=== PATIENT | female | born 1970 | race Caucasian/White ===

== ENCOUNTER → 2018-06-02 17:37 | Outpatient (CLI) | payer OTHER, SELFPAY ==
--- NOTE | 2018-06-02 | DI.MRI.S_ITS ---
PROCEDURE: MR ANKLE LT WO CON INDICATIONS: LEFT ANKLE PAIN TECHNIQUE: Noncontrast sagittal T1 spin echo and T2 fast spin echo with fat saturation, axial proton density fast spin echo and T2 fast spin echo with fat saturation, coronal T1 spin echo and T2 fast spin echo with fat saturation through the ankle/hindfoot. COMPARISON: [facility], RG, ANKLE MIN 3VW (LT), 05/02/2018, 8:59. [facility], MR, ANKLE WITHOUT CONTRAST, 02/28/2017, 17:47. FINDINGS: Image quality: Excellent. Bones and joints: No bone marrow contusions or fractures. 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 There is associated mild magnetic susceptibility artifact. There is mild mid foot degeneration with scattered foci of subchondral edema most prominent within the medial cuneiform. No hindfoot coalitions. No osteochondral lesions in the talar dome. There is a small tibiotalar joint effusion. Medial structures: The posterior tibialis, flexor digitorum longus, and flexor hallucis longus tendons are intact. There is a small amount of tenosynovial fluid along the posterior tibialis tendon. The posterior tibial neurovascular bundle appears normal within the tarsal tunnel, without extrinsic mass effect. The deep layer (anterior and posterior tibiotalar ligaments) and superficial layer (tibionavicular, tibiospring, and tibiocalcaneal ligaments) of the deltoid ligament appear intermediate in signal but grossly intact. The spring ligament components (superomedial calcaneonavicular, medioplantar oblique calcaneonavicular, and inferoplantar longitudinal ligaments) also appear intact. Lateral structures: Postsurgical changes compatible with modified Brostrom procedure are redemonstrated. There is associated intermediate signal intensity soft tissue anteriorly along the expected course of the anterior talofibular ligament compatible with scar tissue. The anterior talofibular, calcaneofibular, and posterior talofibular ligaments appear intermediate in signal but grossly intact. More superiorly, the anterior and posterior tibiofibular ligaments appear intact, as is the intermalleolar ligament. The tibiofibular syndesmosis is normal in width at 2 mm or less. The peroneus longus and brevis tendons demonstrate normal location with mild tendinopathy as well as flattening of the peroneus brevis. No evidence of rupture. There is mild peritendinous edema. Adjacent bony peroneal tubercle and retrotrochlear prominence are normal in size. The sinus tarsi demonstrates preserved fatty signal, without edema, fibrosis, or cyst formation. The calcaneonavicular and calcaneocuboid components of the bifurcate ligament appear intact. The dorsal calcaneocuboid ligament appears intact. Anterior structures: The tibialis anterior, extensor hallucis longus, and extensor digitorum longus tendons appear intact. The dorsal talonavicular ligament appears intact. Posterior and plantar structures: Achilles tendon is intact. There is mild thickening of the central cord of the plantar fascia which may reflect sequelae of prior plantar fasciitis. No abductor digiti quinti muscle atrophy to suggest Rangel neuropathy. IMPRESSION: 1. Postsurgical changes redemonstrated consistent with prior modified Brostrom procedure. Scar tissue redemonstrated along the anterior talofibular ligament which appears grossly intact. Remaining lateral ankle ligaments also demonstrate intermediate signal compatible with prior sprains but appear grossly intact. 2. Mild tendinopathy of the peroneal tendons with mild peritendinous edema. 3. Intermediate signal in the deltoid ligament may reflect sequelae of a prior mild sprain. 4. Mild midfoot degenerative changes. Dictated by: Kelvin tSallworth M.D. on 06/05/2018 at 12:53 Approved by: Kelvin Stallworth M.D. on 06/05/2018 at 13:13
== END ==
PROVIDERS: Visit Provider Orthopaedic Surgery Foot and Ankle Surgery
DX: M25.572 Pain in left ankle and joints of left foot (principal); M19.072 Primary osteoarthritis, left ankle and foot
CPT/HCPCS: 73721

== ENCOUNTER 2018-07-13 11:51 | Day surgery (SDC) | payer OTHER, SELFPAY ==
[2018-07-12 08:56] VITALS: BMI 44.6
[2018-07-13] VITALS (11 sets, daily range): BP systolic 121–155; BP diastolic 61–98; PULSE 78–90; RESP 10–16; TEMP 36.3–36.8; O2SAT 97–100; BMI 44.6
[2018-07-13] MEDS: SCOPOLAMINE 1 PATCH TOP (13:22)
[2018-07-13] MEDS: LACTATED RINGERS 1,000 ML 42 ML IV ×2 (13:29→17:10)
--- NOTE | 2018-07-13 15:13 | PM.PREOP ---
Pre-operative Note Interval Note Pre-op Check: Yes History & Physical Reviewed by Physician and Yes Exam Performed Changes: No
[2018-07-13] MEDS: CLINDAMYCIN 900 MG/50 ML PIGGYBACK 50 MG IV (16:55)
--- NOTE | 2018-07-13 17:12 | SUR.OPER ---
Supine on padded OR bed, head on pillow, arms secured on padded arm boards at <90 degrees abduction, legs uncrossed, left leg draped free with leg hill, safety belt at hips tape over blanket over right lower legs.
[2018-07-13] MEDS: BUPIVACAINE 0.5% (PF) VIAL 30 ML INJ (17:35)
[2018-07-13] MEDS: KETOROLAC 30 MG/ML VIAL IV (18:27)
[2018-07-13] MEDS: HYDROMORPHONE 2 MG INJ 0.5 MG IV ×2 (18:38→18:48)
[2018-07-13] MEDS: METOCLOPRAMIDE 10 MG/2 ML INJ IV (18:55)
--- NOTE | 2018-07-13 18:55 | P.OP_ITS ---
Operative Date/Time/Diagnoses Date of procedure: 07/13/18 Time of procedure: 17:00 Pre-op diagnosis: 1. Left ankle impingement icd M25.879 2. Tear of peroneal tendon, left icd s 86.312d 3. 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 Arthroscopy, ankle, limited debridement, left CPT code 17541 2. Tenosynovectomy of left peroneal tendon CPT code 99095 3. Repair peroneal tendon sheath Same procedure as scheduled: Yes Indications: Patient is a 48-year-old female with chronic left ankle pain after a lateral ligament repair and superficial peroneal retinaculum repair and peroneal tendon repair. The patient has failed conservative treatment with physical therapy, braces, injections. She had a repeat MRI that showed peroneal tendinosis has symptoms consistent with impingement as well as peroneal symptoms. The risks benefits and alternatives to a surgery for ankle debridement and peroneal tendon exploration and debridement were discussed with the patient in detail. The risks discussed include but are not limited to infection, bleeding, damage to nerves and blood vessels, tendons, wound dehiscence, , persistence of pain, DVT, PE, inability return to the desired level of function, generalized dissatisfaction with the surgical procedure, need for additional procedures, cardiopulmonary complications and . The patient expressed understanding of all the risks and elected to proceed. Informed consent was signed in the office. Patient will utilize aspirin 325 mg daily starting postop day 1 for DVT prophylaxis. Surgeon: Deborah Galvez Click Yes if Unassisted: Yes Anesthesia Type: General Operative Notes Findings: Arthroscopy findings. The tibiotalar joint and cartilage was without defect there was minimal anterior synovitis that was gently debrided with the shaver. Peroneal tendon debridement findings: There is significant scar tissue over the peroneal tendon sheath and within the sheath along the peroneal tendons. The peroneus brevis tendon was noted to have a longitudinal tear involving approximately 10% of the tendon and this was resected. Additionally there was a significant low-lying muscle belly that was debrided. Both peroneal tendons had significant tenosynovitis which was carefully debrided. Tear peroneal sheath distal to SPR. Closure Type: primary Specimen(s): none sent Implants & Drains: None Applied: other (Splint) Estimated Blood Loss (mL): 10 Blood products transfused: none Tourniquet time (min): 53 Procedure in detail: The preoperative holding area the appropriate limb and site of surgery were marked and confirmed with the patient. The patient was brought to the operating room placed on operating table and given anesthetic. Following successful level of anesthesia the patient was appropriately padded position secured to the table. An SCD was placed on the contralateral leg. The patient was placed supine with a well-padded thigh tourniquet and positioned for arthroscopy with the leg hill. Surgical leg was then prepped and draped in the standard sterile fashion. A formal time-out was completed confirming the patient's side and site of surgery administration of appropriate preoperative antibiotics. All were in agreement. Esmarch bandage was utilized to exsanguinate the limb and the tourniquet was raised on the thigh to 250 mm of mercury and stayed there for 53 min. The appropriate anterior medial portal site for the ankle was identified just medial to the tibialis anterior tendon a needle was introduced into the tibiotalar joint and 15 cc of lactated Ringer's was used to insufflate the joint. Next a knife was used just through the skin and a hemostat was used for blunt dissection deeply and entered the anterior joint the trocar and scope were then introduced. Under direct visualization the anterior lateral portal was established using a needle and then again the superficial neck and blunt has spread into the joint technique. The noninvasive distractor was placed and arthroscopy was undertaken. Tibiotalar joint was evaluated including the medial and lateral gutters. The talar and tibial cartilage were intact without focal defects found. There was a minimal amount of anterior lateral synovitis may be consistent with some of the patient's impingement symptoms this was gently debrided using the small joint shaver. Once we were satisfied with this the arthroscopy instruments were removed from the ankle the patient's leg was removed from the well leg hill and the open procedure was started. Medial tendon exploration: Patient's previous posterior lateral incision along the posterior fibula and peroneal tendons was reopened this was taken through the skin and subcutaneous tissue. Careful dissection was taken down to expose the peroneal sheath proximally and distally. There was a noted rent in the peroneal sheath distally just past the SPR. a [employer] was placed into this opening and the peroneal sheath was opened longitudinally over the [employer] leaving a cuff for repair off the back of the fibula. Next the peroneal tendons were inspected. The peroneus longus appeared predominantly intact but with some tenosynovitis and scarring. The peroneus brevis did have a longitudinal tear involving approximately 10% of the tendon as well as significant scarring adhesions and a low-lying muscle belly that was adherent to the surrounding tissue. This was freed up in the low lying muscle belly was excised and the tendon tear was also excised. This left smooth well formed peroneal tendons which glided well within the groove. Wound was then irrigated the peroneal retinaculum was closed with 2 0 Maxon suture and the wound was closed in layers with 3 0 Vicryl for a Monocryl and 3 O nylon suture. The portal incisions were closed with 3 O nylon and Steri-Strips. Tourniquet was released prior to closure and hemostasis was confirmed. A sterile dressing was placed with Xeroform gauze Webril and a stirrup splint. The patient was woken from anesthesia taken the PACU in good condition. There no known complications to this procedure. All counts were correct. It was noted taking up the drapes postoperatively the patient did have some minor superficial bruising at the posterior thigh despite use of appropriate padding around the thigh tourniquet and the gel pad on the leg hill. There is no skin breakdown blistering or occasions for further intervention. Complications: none Condition: stable Disposition: PACU Plan for aftercare: Patient will be nonweightbearing on the operative extremity she will elevate above the heart level strictly for the 1st 2 weeks after surgery. She will have Percocet for pain control and use aspirin 325 daily for DVT prophylaxis.
[2018-07-13] MEDS: OXYCODONE/ACETAMINOPHEN 5/325 TABLET 1 TAB PO (19:03)
--- NOTE | 2018-07-13 19:08 | SUR.PHASEI ---
PACU stay length primarily due to pain control measures and follow up with VS. FLACC and verbalized ratings are inconsistent, but medication given based on verbalized.
[2018-07-13] MEDS: LORazepam 0.5 MG TABLET PO (19:20)
--- NOTE | 2018-07-13 19:29 | SUR.PHASEII ---
IV removed at 192. It was documented but a 22g angio was in situ in the rt forearm with fluids running easily.
--- NOTE | 2018-07-13 19:43 | SUR.PHASEII ---
Some nausea after trying chocolate pudding in OPD. Went with Lorazepam po for treatment due to not wanting a reaction to quicker onset of IV (also an option). With bland affect perhaps some emotional benefit might be realized as well.
== END 2018-07-13 19:45 | disposition home or self-care (01) ==
PROVIDERS: PCP Family Medicine; Visit Provider Orthopaedic Surgery Foot and Ankle Surgery
PROC: (CPT 29897; principal; 2018-07-13 13:45)
DX: M25.872 Other specified joint disorders, left ankle and foot (principal); S86.312A Strain of muscle(s) and tendon(s) of peroneal muscle group at lower leg level, left leg, initial encounter; M76.72 Peroneal tendinitis, left leg; E66.9 Obesity, unspecified; M25.372 Other instability, left ankle; Z68.41 Body mass index [BMI] 40.0-44.9, adult
CPT/HCPCS: 29897; 28086; J1100; J1170; J1885; J2704; J2765; J3010

== ENCOUNTER 2019-04-13 07:47 | Day surgery (SDC) | payer OTHER, SELFPAY ==
[2019-04-12 14:08] VITALS: BMI 43.7
[2019-04-13] VITALS (8 sets, daily range): BP systolic 119–140; BP diastolic 75–87; PULSE 70–100; RESP 12–16; TEMP 36.1–36.5; O2SAT 94–100; BMI 43.3
--- NOTE | 2019-04-13 | PATH_ITS ---
[facility] Accession Number: [id number] . 01 Material submitted: . foot - MASS DORSUM LEFT FOOT . 01 Diagnosis: Soft Tissue, Dorsum of Left Foot, Excision: Fibroadipose tissue with changes of ganglion cyst. [facility] 04/17/2019 1706 Local . 01 Electronically signed: . Hilary Sigala MD, Pathologist NPI- [id number] . 01 Gross description: . MASS DORSUM LEFT FOOT: Received in formalin is 1 fragment of block soft tissue measuring 0.9 x 0.8 x 1.0 cm. Tissue is inked,. Specimen is sectioned and submitted in its entirety in 1 cassette. /[facility] [place] 04/13/2019 194 Local . 01 Pathologist provided ICD-10: R22.42 . 01 CPT . 765252 Performed at: [address] [facility] [id number] MD Kelvin Mena MD Phone: [phone]
--- NOTE | 2019-04-13 07:26 | P.HP_ITS ---
History of Present Illness History of Present Illness Date Patient Seen: 04/13/19 Time Patient Seen: 07:27 Chief complaint: [id number] *$61 copay* Narrative: Interval update to the patient's H and P as it has been just over 30 days from her preoperative assessment there been no notable changes. Patient is a 48-year-old female that presents with a left dorsal foot mass that has been bothersome and increasing over time. She endorses pain and burning in the area and she is unable to wear shoes comfortably. She is interested in removal of the cyst. She previously had an ultrasound demonstrating consistent findings with dorsal foot ganglion. Denies fevers chills nausea vomiting Patient History Medical History Arthritis (Acute) DDD (degenerative disc disease), lumbar (Acute) Diabetes (Acute) GERD (gastroesophageal reflux disease) (Acute) H/O: hysterectomy (Acute) Hx of migraine headaches (Acute) Peroneal tenosynovitis (Acute 06/02/16) Peroneus brevis tendinitis (Acute) Surgical History History of 3 sections (Acute) History of carpal tunnel release (Acute) History of ethmoidectomy (Acute 08/15/14) History of surgery (Acute) Hx laparoscopic cholecystectomy (Acute) Hx of adenoidectomy (Acute) Hx of arthroscopic knee surgery (Acute) Hx of nasal septoplasty (Acute 08/15/14) Social History household members: spouse Smoking Status: Never smoker alcohol intake: current Family & Social History Social History: household members spouse Tobacco & Substance use: Smoking Status Never smoker alcohol intake current Substance Use Type does not use Meds Home Medications and Allergies Home Medications Medication Instructions Recorded Confirmed Type esomeprazole magnesium [Nexium] 20 mg PO DAILY 04/13/19 04/13/19 History trazodone 50 mg PO BEDTIME 04/13/19 04/13/19 History Allergies Allergy/AdvReac Type Severity Reaction Status Date / Time ondansetron Allergy Intermediate HIVES Verified 04/13/19 08:11 [From ZOFRAN ( HYDROCHLORIDE)] Penicillins [PENICILLINS] Allergy Intermediate HIVES Verified 04/13/19 08:11 wheat [WHEAT] Allergy Unknown Gastrointestinal Verified 04/13/19 08:11 Upset hydrocodone AdvReac Insomnia Verified 04/13/19 08:11 Review of Systems Review of Systems ROS Unobtainable: All systems reviewed & are unremarkable except as noted in HPI and below Exam Narrative Exam Narrative: Alert oriented female in no acute distress. Cardiovascular exam regular rate and rhythm. Respiratory exam lungs clear to auscultation bilaterally. Abdomen soft and nontender. No lymphadenopathy the noted. No skin lesions. Gait is full weight-bearing without assistive devices. Right lower extremity shows grossly normal alignment range of motion strength and stability swelling atrophy or effusion. Left lower extremity shows grossly normal alignment range of motion strength and stability. There is a small approximately 1 cm mobile mass over the dorsum of the foot near the tarsometatarsal joints at the 3rd and 4th to toes. Mass is compressible. No skin changes. No signs or symptoms of infection. Brisk capillary refill. Neurologic examination grossly intact to light touch throughout the upper and lower extremities. Coordination normal. Objective Imaging Ultrasound lower extremity: Radiologist's impression: Ganglion cyst 1.3 x 0.4 x 0.4 cm along the extensor digitorum longus tendons between the 3rd and 4th toes at the tarsometatarsal level left foot corresponding to palpable visible finding. Reading radiologist brody Alvarado----[facility] Assessment & Plan Assessment & Plan narrative: 48-year-old female with a dorsal mass on her left foot is likely a ganglion cyst to be the tendon sheath or tarsometatarsal joints. Patient does have mild degenerative changes on x-ray. We discussed treatment of this with conservative treatment and avoiding irritating shoes we also discussed aspiration or injection surgical removal and excisional biopsy. The patient understands the options. She is interested in excisional biopsy. The risks benefits and alternatives of procedure were discussed with the patient in detail including infection, recurrence of mass, need for additional procedures, nerve and vessel damage, wound healing problems, scarring, persistent pain, DVT, PE, cardiac and pulmonary complications up to including . Consent was signed in the office. This will be an outpatient surgery. The patient will be weightbear as tolerating and a soft dressing afterwards. She will bring a shoe heart from home. She will have Ancef 2 g for preoperative antibiotic. Time Spent With Patient Time with patient: less than 15 minutes Quality VTE Deep Vein Thrombosis/Pulmonary Embolism Present on Admission: No
[2019-04-13] MEDS: LACTATED RINGERS 1,000 ML 42 ML IV (08:16)
[2019-04-13] MEDS: SCOPOLAMINE 1 PATCH TOP (09:50)
[2019-04-13] MEDS: CEFAZOLIN 2 GM/100 ML FROZ.PIGGY IV (09:50)
--- NOTE | 2019-04-13 10:05 | SUR.OPER ---
Supine on padded OR bed, head on pillow, arms secured on padded arm boards at <90 degrees abduction, legs uncrossed, safety belt at thigh, tape over blanket over lower legs.
[2019-04-13] MEDS: BUPIVACAINE 0.25% (PF) VIAL 30 ML INJ (10:12)
--- NOTE | 2019-04-13 10:35 | PM.OP.1 ---
Operative Date/Time/Diagnoses Date of procedure: 04/13/19 Time of procedure: 10:00 Pre-op diagnosis: Mass left foot R22.42 Post-op diagnosis: same Procedure & Clinicians Procedure: Excision mass left foot dorsum CPT code 71260 Same procedure as scheduled: Yes Indications: Patient is a 48-year-old female with a dorsal mass on her left foot consistent with ganglion cyst on ultrasound. The patient had increasing size and pain associated with the mass and difficulty wearing shoes. We discussed treatment options. The patient elected for surgical excision. The risks and benefits of the procedure have been discussed with the patient even opportunity to ask questions. The risks of surgery include but are not limited to infection, recurrence, malunion, nonunion, persistence of pain, damage to nerves and blood vessels, posttraumatic arthritis, DVT, PE, cardiopulmonary complications and . The patient expressed a thorough understanding of the risks and benefits of surgery and has elected to proceed. Consent was signed in the office. Surgeon: Deborah Galvez Click Yes if Unassisted: Yes Anesthesia Type: MAC +/- and Local Operative Notes Findings: Small dorsal ganglion type cyst emerging from the tarsometatarsal joints between the extensor tendons between the 3rd and 4th toes of the left foot. Closure Type: primary Specimen(s): other (Dorsal mass, cyst for pathology) Estimated Blood Loss (mL): 1 Blood products transfused: none Tourniquet time (min): 13 Procedure in detail: Patient was seen in the preoperative area site of surgery was marked and informed consent confirmed. Final questions were answered. Patient was then brought back to the operating room positioned supine on the operative table. Anesthesia was administered. All bony prominences were well padded. A well-padded calf tourniquet was placed. SCD was placed on the contralateral lower extremity. A formal time-out procedure was performed confirming the patient's side and site of surgery. Preoperative antibiotics were administered. The left lower extremities prepped and draped in the standard sterile fashion. Attention was turned to the dorsum of the left foot. There is a palpable mass at the base of the 3rd and 4th tarsometatarsal joints on the extensor surface. This was marked out an approximately 2 cm longitudinal incision was made this was taken carefully down through the skin then subcutaneous dissection to the extensor tendons. There is noted to be a soft tissue cyst type mass extending up through the extensor tendons. This was carefully dissected and followed deep down between the extensor tendons to the level of the tarsometatarsal joints. There is a small amount of clear gelatinous cyst type fluid. This tissue was excised and sent in total to pathology. The wound was then explored no further masses were encountered. There were small osteophytes at the tarsometatarsal joints. And extension tendons were left intact. The wound was then irrigated the tourniquet released and the wound closed in layered fashion with 4 0 Monocryl and 3 O nylon in the skin. A sterile dressing was placed with Xeroform gauze Kerlix and Jesus wrap. Patient was then woken from anesthesia and taken to recovery room in good condition. All counts were correct. No immediate complications. Complications: none Post-operative Condition: stable Disposition: PACU Plan for aftercare: Weight bear as tolerated left lower extremity postop shoe as needed. Keep dressing in place until follow-up. Keep incision clean dry and intact.
[2019-04-13] MEDS: OXYCODONE IR 5 MG TABLET PO (11:11)
--- NOTE | 2019-04-13 11:13 | SUR.PHASEII ---
PT TOLERATING PO JUICE AND PUDDING, AT BEDSIDE WITH PT, D/C INSTRUCTIONS REVIEWED WITH PT AND WITH VERBALIZED UNDERSTANDING.
== END 2019-04-13 11:30 | disposition home or self-care (01) ==
PROVIDERS: PCP Family Medicine; Visit Provider Orthopaedic Surgery Foot and Ankle Surgery
PROC: (CPT 64782; principal; 2019-04-13 09:45)
DX: M67.472 Ganglion, left ankle and foot (principal); M25.775 Osteophyte, left foot; E11.9 Type 2 diabetes mellitus without complications
CPT/HCPCS: 28090; J0690; J2704; J2765; J3010

== ENCOUNTER → 2020-02-12 09:17 | Outpatient (CLI) | payer OTHER, SELFPAY ==
[2020-02-13 06:29] LABS: COVID19 Sendout Not Detected (Not Detect)
== END ==
PROVIDERS: PCP Family Medicine; Visit Provider Physician Assistant
DX: Z11.59 Encounter for screening for other viral diseases (principal)
CPT/HCPCS: 87635

== ENCOUNTER → 2021-06-23 07:58 | Outpatient (CLI) | payer OTHER, SELFPAY ==
--- NOTE | 2021-06-23 | DI.MG.S_ITS ---
BILATERAL DIGITAL SCREENING MAMMOGRAM 3D/2D WITH CAD: 06/23/2021 CLINICAL: Routine screening. Comparison is made to exams dated: 05/10/2018 mammogram and 08/19/2015 mammogram - [facility]. There are scattered fibroglandular elements in both breasts. Current study was also evaluated with a Computer Aided Detection (CAD) system. No significant masses, calcifications, or other findings are seen in either breast. There has been no significant interval change. IMPRESSION: NEGATIVE There is no mammographic evidence of malignancy. A 1 year screening mammogram is recommended. This exam was interpreted at Station ID: [id number]. NOTE: For mammograms, a report in lay terms will be sent to the patient. Approximately 15% of breast malignancies will not be visualized mammographically. In the management of a palpable breast mass, a negative mammogram must not discourage biopsy of a clinically suspicious lesion. Electronically Signed By: Juan Diego melara/renee:06/23/2021 11:37:59 letter sent: Normal Exam ACR BI-RADS Category 1: Negative [id number]
== END ==
PROVIDERS: PCP Family Medicine; Referring Provider Family Medicine; Visit Provider Family Medicine
DX: Z12.31 Encounter for screening mammogram for malignant neoplasm of breast (principal)
CPT/HCPCS: 77063; 77067

== ENCOUNTER 2023-02-04 13:17 | Emergency (ER) | payer OTHER, SELFPAY ==
[2023-02-04] VITALS (14 sets, daily range): BP systolic 106–129; BP diastolic 56–68; PULSE 58–77; RESP 14; TEMP 36.8; O2SAT 94–100; BMI 29.9
[2023-02-04 13:52] LABS: Add Manual Diff / Slide Review NO; Basophils Absolute Auto 0 /uL (0-100); Basophils Percent Auto 0.7 % (0-2); Eosinophils Absolute Auto 100 /uL (0-450); Eosinophils Percent Auto 1.1 % (2-4); Hemoglobin 13.6 g/dL (12.0-16.0); Lymphocytes Absolute Auto 1800 /uL (1100-4500); Mean Corpuscular HGB Conc 34.9 % (30-36); Mean Corpuscular Hemoglobin 30.2 PG (26-34); Mean Corpuscular Volume 86.6 fL (80-100); Monocytes Absolute Auto 300 /uL (0-900); Monocytes Percent Auto 6.6 % (3-14); Neutrophils Absolute Auto 2800 /uL (1500-7000); Neutrophils Percent Auto 55.6 % (50-75); Platelet Count 201 X10^3/uL (150-400); Red Blood Cell Count 4.51 X10^6/uL (4.0-5.2); Red Cell Distribution Width 13.6 % (11.6-14.8); White Blood Cell Count 5.1 X10^3/uL (4.5-11.0)
[2023-02-04 14:04] LABS: Alanine Aminotransferase 39 IU/L (<35); Albumin 4.5 g/dL (3.5-5.0); Albumin Globulin Ratio 1.6 (1.0-2.8); Alkaline Phosphatase 96 U/L (38-126); Aspartate Aminotransferase 41 IU/L (14-36); BUN Creatinine Ratio 29.4 (6-22); Bilirubin Total 0.6 mg/dL (0.2-1.3); Blood Urea Nitrogen 15 mg/dL (7-17); Calcium 8.9 mg/dL (8.4-10.2); Carbon Dioxide 29 mmol/L (22-32); Chloride 102 mmol/L (98-107); Estimated Glomerular Filt Rate > 60 mL/min (>60); Globulin 2.9 g/dL (1.7-4.1); Glucose 99 mg/dL (70-100); Lipase 82 U/L (23-300); Potassium 4.7 mmol/L (3.4-5.1); Sodium 137 mmol/L (137-145); Total Protein 7.4 g/dL (6.3-8.2)
[2023-02-04 14:18] LABS: HEMOLYSIS 66 (0-50)
--- NOTE | 2023-02-04 18:08 | ED_ITS ---
HPI - General Adult General Chief complaint: Urogenital-Female Stated complaint: HX of UTI pain is back Time Seen by Provider: 02/04/23 18:03 Source: patient Mode of arrival: Ambulatory History of Present Illness HPI narrative: 52-year-old woman with a history of bariatric surgery 10 months ago, she is post cholecystectomy but does still have her appendix and she was seen at urgent care 2 weeks ago with complaints of right lower quadrant pain she gave a urine sample that did not suggest abnormality but did culture positive for bladder infection without any dysuria. She was given a course of antibiotics and it did not seem to completely influence her pain. She finished those antibiotics on the and is continuing to have significant right lower quadrant pain. She denies any fevers, cough or chills. She is been mildly nauseated with decreased appetite. She has a history of chronic constipation and typically uses a suppository to help does not feel that this is significantly changed. There has been no blood in her stools. She has no prior history of kidney infections or kidney stones. Related Data Home Medications Medication Instructions Recorded Confirmed esomeprazole magnesium 20 mg 20 mg PO DAILY 04/13/19 04/13/19 capsule,delayed release (Nexium) trazodone 50 mg tablet 50 mg PO BEDTIME 04/13/19 04/13/19 Previous Rx's Medication Instructions Recorded oxycodone 5 mg tablet 5 mg PO Q4H PRN pain #14 tabs 04/13/19 Allergies Allergy/AdvReac Type Severity Reaction Status Date / Time ondansetron Allergy Intermediate HIVES Verified 02/04/23 13:25 [From ZOFRAN ( HYDROCHLORIDE)] Penicillins [PENICILLINS] Allergy Intermediate HIVES Verified 02/04/23 13:25 sulfamethoxazole Allergy Intermediate Rash Verified 02/04/23 13:27 [From Sulfamethoxazole-Trimethoprim] trimethoprim Allergy Intermediate Rash Verified 02/04/23 13:27 [From Sulfamethoxazole-Trimethoprim] wheat [WHEAT] Allergy Unknown Gastrointestinal Verified 02/04/23 13:25 Upset hydrocodone AdvReac Insomnia Verified 02/04/23 13:25 Review of Systems Review of Systems Narrative: Pertinent positive and negative findings as per HPI Patient History Medical History (Updated 02/04/23 @ 21:08 by Tory Steen MD) Arthritis DDD (degenerative disc disease), lumbar Diabetes GERD (gastroesophageal reflux disease) Hx of migraine headaches Peroneal tenosynovitis (06/02/16) Peroneus brevis tendinitis Surgical History H/O: hysterectomy History of 3 sections History of carpal tunnel release History of ethmoidectomy (08/15/14) History of surgery Hx laparoscopic cholecystectomy Hx of adenoidectomy Hx of arthroscopic knee surgery Hx of nasal septoplasty (08/15/14) Social History household members: spouse Smoking Status: Never smoker alcohol intake: current Smoking Status: Never smoker Substance Use Type: marijuana Exam Initial Vital Signs Initial Vital Signs: Vital Signs Temperature 98.2 F 02/04/23 13:20 Pulse Rate 72 02/04/23 13:20 Respiratory Rate 14 02/04/23 13:20 Blood Pressure 122/60 02/04/23 13:20 Pulse Oximetry 99 02/04/23 13:20 Oxygen Delivery Method Room Air 02/04/23 13:20 General: Healthy appearing, in no acute distress. Able to give a complete and coherent history. Well-nourished well-developed HEENT: Moist mucous membranes, normal sclera with reactive pupils, Neck: No cervical adenopathy supple Respiratory: Lungs are clear to auscultation, no wheezing no rales no rhonchi. Full and symmetrical air movement Cardiac: Regular rate and rhythm no murmurs no bruits Abdomen: Soft, tender in the entire right lower quadrant including the right flank with most tenderness deep in the right quadrant. She has no rebound or guarding Skin: Warm and dry, no rashes Neurologic: Grossly neurologically intact with no obvious asymmetries or abnormalities Extremities: No trauma, well perfused Psych: Cooperative, appropriate insight and affect Course Orders Ordered: ED Orders 02/04/23 13:40 Complete Blood Count AUTO DIFF Stat Comprehensive Metabolic Panel Stat Lipase Stat 02/04/23 18:22 CT abdomen pelvis w con Stat Hydromorphone HCl (Hydromorphone 0.5 Mg Inj) 0.5 mg IV Q15MIN PRN PRN Reason: Pain, Last Admin: 02/04/23 18:31 Dose: 0.5 mg Documented By: ST Discontinued Medications Sodium Chloride (Normal Saline 0.9%) 1,000 mls @ 1,000 mls/hr IV BOLUS ONE Stop: 02/04/23 19:21 Ketorolac Tromethamine (Ketorolac 30 Mg/Ml Vial) 15 mg IV NOW ONE Stop: 02/04/23 18:23 Last Admin: 02/04/23 18:30 Dose: 15 mg Documented By: ST Vital Signs Vital signs: Vital Signs - 8 hr 02/04/23 13:20 02/04/23 17:01 02/04/23 17:05 Temperature 98.2 F Pulse Rate 72 77 76 Respiratory Rate 14 Blood Pressure 122/60 Pulse Oximetry 99 100 98 Oxygen Delivery Method Room Air 02/04/23 17:05 02/04/23 17:30 02/04/23 17:30 Temperature Pulse Rate 61 Respiratory Rate Blood Pressure 106/68 111/59 L Pulse Oximetry 94 Oxygen Delivery Method 02/04/23 18:00 02/04/23 18:01 02/04/23 18:01 Temperature Pulse Rate 63 58 L Respiratory Rate Blood Pressure 129/58 L Pulse Oximetry 97 97 Oxygen Delivery Method 02/04/23 18:33 02/04/23 18:34 02/04/23 18:34 Temperature Pulse Rate 71 61 Respiratory Rate Blood Pressure 110/59 L Pulse Oximetry 99 100 Oxygen Delivery Method 02/04/23 19:00 02/04/23 19:30 02/04/23 20:00 Temperature Pulse Rate 60 60 60 Respiratory Rate Blood Pressure Pulse Oximetry 98 99 99 Oxygen Delivery Method 02/04/23 20:04 02/04/23 20:04 02/04/23 20:30 Temperature Pulse Rate 62 Respiratory Rate Blood Pressure 113/57 L 122/60 Pulse Oximetry 100 Oxygen Delivery Method 02/04/23 20:30 Temperature Pulse Rate 68 Respiratory Rate Blood Pressure Pulse Oximetry 99 Oxygen Delivery Method Medical Decision Making Lab Data 02/04/23 13:40 02/04/23 13:40 Labs: Lab Results 02/04/23 02/04/23 Range/Units 13:40 13:40 WBC 5.1 (4.5-11.0) X10^3/uL RBC 4.51 (4.0-5.2) X10^6/uL Hgb 13.6 (12.0-16.0) g/dL Hct 39.0 (36-46) % MCV 86.6 (80-100) fL MCH 30.2 (26-34) PG MCHC 34.9 (30-36) % RDW 13.6 (11.6-14.8) % Plt Count 201 (150-400) X10^3/uL Neut % (Auto) 55.6 (50-75) % Lymph % (Auto) 36.0 (25-40) % [place] % (Auto) 6.6 (3-14) % Eos % (Auto) 1.1 L (2-4) % Baso % (Auto) 0.7 (0-2) % Neut # (Auto) 2800 (1835-7491) /uL Lymph # (Auto) 1800 (1602-6685) /uL [place] # (Auto) 300 (0-900) /uL Eos # (Auto) 100 (0-450) /uL Baso # (Auto) 0 (0-100) /uL Sodium 137 (137-145) mmol/L Potassium 4.7 (3.4-5.1) mmol/L Chloride 102 (98-107) mmol/L Carbon Dioxide 29 (22-32) mmol/L BUN 15 (7-17) mg/dL Creatinine 0.51 L (0.52-1.04) mg/dL Estimated GFR > 60 (>60) mL/min BUN/Creatinine Ratio 29.4 H (6-22) Glucose 99 (70-100) mg/dL Calcium 8.9 (8.4-10.2) mg/dL Total Bilirubin 0.6 (0.2-1.3) mg/dL AST 41 H (14-36) IU/L ALT 39 H (<35) IU/L Alkaline Phosphatase 96 (38-126) U/L Total Protein 7.4 (6.3-8.2) g/dL Albumin 4.5 (3.5-5.0) g/dL Globulin 2.9 (1.7-4.1) g/dL Albumin/Globulin Ratio 1.6 (1.0-2.8) Lipase 82 (23-300) U/L Urine Dip Bedside Urine Glucose Negative Bedside Urine Bilirubin - Negative Bedside Urine Ketone - Negative Urine Specific [place] 1.010 Bedside Urine Occult Blood - Negative Bedside Urine pH 7.0 Bedside Urine Protein - Negative Bedside Urine Urobilinogen - Negative Bedside Urine Nitrite - Negative Bedside Urine Leukocytes - Negative Esterase Point of care testing: Urine Dip Bedside Urine Glucose Negative Bedside Urine Bilirubin - Negative Bedside Urine Ketone - Negative Urine Specific [place] 1.010 Bedside Urine Occult Blood - Negative Bedside Urine pH 7.0 Bedside Urine Protein - Negative Bedside Urine Urobilinogen - Negative Bedside Urine Nitrite - Negative Bedside Urine Leukocytes - Negative Esterase MDM Narrative Medical decision making narrative: CC: 2 weeks of continued right lower quadrant pain, acute, uncertain prognosis Complicating co-morbidities: Gastric surgery 8 months ago Data collected from: patient, Medical records reviewed: Orthopedic notes reviewed Differential considered: Kidney stone, obstructing kidney abnormality, pyelonephritis, appendicitis, Exam documented above, pertinent findings include: Tenderness in the right lower quadrant without rebound or guarding Lab Test results independently reviewed as above. Pertinent findings: CBC is unremarkable with normal white blood cell count Chemistries are reassuring including a normal creatinine. Minimally elevated AST and ALT at 41 and 39 slightly increased from comparison 2017 Imaging studies independently reviewed: CT scan of the abdomen does not show any surgical emergencies, the appendix is noted prominent in size yet no surrounding inflammatory changes and early appendicitis is within the differential. She also has quite a bit of stool in the same area. Discussion: 52-year-old woman presents with right lower quadrant pain. She has had difficulties with constipation since bariatric surgery almost 8 months ago. We talked about preventive measures such as daily magnesium supplements, MiraLax daily may also be helpful in preventing future constipation. In the meantime there is no evidence of surgical bowel obstruction, appendicitis, kidney failure, electrolyte abnormalities or alternate explanations that would require hospitalization, additional imaging or lab work at this time. She is discharged home with a bottle of magnesium citrate to see if cleaning the stool out of the right side of her colon resolves her pain. She understands that she is welcome to return should symptoms not improve or should she develop other findings. Discharge Plan Departure Patient Disposition: Home Clinical Impression: Abdominal pain Qualifiers: Abdominal location: right lower quadrant Qualified Code(s): R10.31 - Right low er quadrant pain Constipation Qualifiers: Constipation type: unspecified constipation type Qualified Code(s): K59.00 - Constipation, unspecified Instructions: DI for Abdominal Pain-Adult, DI for Constipation Activity Restrictions/Additional Instructions: Thank you for coming in tonight I am sorry that you are suffering with this abdominal pain. Fortunately, I am not finding any evidence of acute appendicitis or other surgical abnormalities. I am finding quite a bit of stool that is very compacted over into the right side of your colon and I suspect that is causing your pain. I have given you a bottle of magnesium citrate, I would encourage you to drink the whole thing when you get home. Expect results by tomorrow at the latest. To prevent problems in the future, using anywhere between 1-4 magnesium tablets as a simple supplement can be helpful. You may also find that a scoop full of MiraLax and a cup of coffee with a bit of Creamer in the morning is undetectable and also quite helpful. If you find that you are getting worse or develop any new symptoms, please feel free to return to the emergency department for further evaluation. Prescriptions: No Action trazodone 50 mg Tablet 50 mg PO BEDTIME esomeprazole magnesium [Nexium] 20 mg Capsule,Delayed Release(Dr/Ec) 20 mg PO DAILY oxycodone 5 mg tablet 5 mg PO Q4H PRN (Reason: pain) Qty: 14 0RF Referrals: ProviderJamari [Primary Care Provider] - Stand Alone Forms: Patient Portal/API
--- NOTE | 2023-02-04 18:22 | DI.CT.S_ITS ---
PROCEDURE: CT ABDOMEN PELVIS W CON INDICATIONS: RLQ pain for 2 weeks TECHNIQUE: After the administration of oral and IV contrast, axial sections were acquired from the lung bases to the pubic symphysis. Coronal and sagittal reformats were performed. For radiation dose reduction, the following was used: automated exposure control, adjustment of mA and/or kV according to patient size. COMPARISON: [facility], CT, ABDOMEN/PELVIS WITH CONTRAST, 09/03/2016, 12:10. FINDINGS: Image quality: Excellent. Lung bases: Unremarkable. Heart: No significant findings. ABDOMEN: Liver: Unremarkable. Gallbladder: Removed. Biliary ducts: Unremarkable. Pancreas: Unremarkable. Spleen: Unremarkable. Adrenal Glands: Unremarkable. Kidneys and Ureters: Unremarkable. Stomach and Bowel: In this patient with this given history, scrutiny is given to the appendix. The appendix is seen and is somewhat prominent in size, measuring up to 12 mm, as on series 3, image 25. However, no significant surrounding inflammatory change can be seen. There is a moderate amount of stool seen within the colon, particularly proximally. No dilated loops of small bowel are seen. Bariatric surgery can be seen. Peritoneum: No abnormal intraperitoneal fluid. No free air. Ventral Wall: No hernia. Abdominal Nodes: No retroperitoneal or mesenteric adenopathy by size criteria. Vessels: Aorta and inferior vena cava are normal in size. PELVIS: Pelvic Organs: This patient is status post hysterectomy. No adnexal masses are seen. Bladder: Unremarkable. Pelvic Nodes: No enlarged lymph nodes. Miscellaneous: No inguinal hernias are seen. Bones: The SI joints are again demonstrated to be fused. Age-appropriate bony degenerative changes are seen elsewhere. IMPRESSION: Prominent appendix size, yet without surrounding inflammatory change. Please consider early appendicitis. There is a moderate amount of stool seen within the colon, particularly proximally. Please correlate with an underlying history of constipation. Additional findings: Bariatric surgery Cholecystectomy Hysterectomy Fusion of the sacroiliac joints Dictated by: Chris Jamison M.D. on 02/04/2023 at 18:12 Approved by: Chris Jamison M.D. on 02/04/2023 at 18:16
[2023-02-04] MEDS: SODIUM CHLORIDE 0.9% 1,000 ML 1000 ML IV (18:30)
[2023-02-04] MEDS: KETOROLAC 30 MG/ML VIAL 15 MG IV (18:30)
[2023-02-04] MEDS: HYDROMORPHONE 0.5 MG INJ IV (18:31)
[2023-02-04] MEDS: MAGNESIUM CITRATE 300 ML SOLUTION PO (21:37)
== END 2023-02-04 21:37 | disposition home or self-care (01) ==
PROVIDERS: Emergency Medicine; Emergency Provider Emergency Medicine
DX: R10.31 Right lower quadrant pain (principal); K59.00 Constipation, unspecified; R11.0 Nausea
CPT/HCPCS: 74177; 80053; 81003; 83690; 85025; 96361; 96374; 96375; 99284; J1170; J1885; Q9967

== ENCOUNTER → 2023-04-27 11:36 | Outpatient (CLI) | payer OTHER, SELFPAY ==
--- NOTE | 2023-04-27 | DI.MRI.S_ITS ---
PROCEDURE: MR ANKLE LT WO CON INDICATIONS: PERONEAL TENDONOSIS LEFT TECHNIQUE: Noncontrast sagittal T1 spin echo and T2 fast spin echo with fat saturation, axial proton density fast spin echo and T2 fast spin echo with fat saturation, coronal T1 spin echo and T2 fast spin echo with fat saturation through the ankle/hindfoot. COMPARISON: [facility], MR, MR ANKLE LT WO CON, 06/02/2018, 17:54. FINDINGS: Image quality: Excellent. Bones and joints: No bone marrow contusions or fractures. No hindfoot coalitions. No osteochondral injuries of the talar dome. Mild degenerative spurring of the dorsal talonavicular and navicular cuneiform articulations. Mild scattered degenerative changes in the tarsometatarsal joints. Surgical anchors are seen in the distal fibula and lateral talus. Medial structures: The deep and superficial layers of the deltoid ligament appear intact. The spring ligament components are intact. Mild distal posterior tibialis tenosynovitis. The flexor digitorum longus and flexor hallucis longus tendons are intact. The posterior tibial neurovascular bundle appears normal within the tarsal tunnel, without extrinsic mass effect. Lateral structures: Postsurgical changes are again seen at the lateral ankle. Intermediate signal intensity is again seen along the course of the anterior talofibular ligament. The anterior talofibular, calcaneofibular, and posterior talofibular ligaments appear unchanged with intermediate signal intensity but no definite disruption of ligament fibers. The anterior and posterior tibiofibular ligaments appear intact. The peroneus longus and brevis tendons demonstrate thickening compatible with tendinosis. The sinus tarsi demonstrates normal fatty signal. Anterior structures: The tibialis anterior, extensor hallucis longus, and extensor digitorum longus tendons appear intact. The dorsal talonavicular ligament appears intact. Posterior and plantar structures: Achilles tendon is intact. The proximal plantar fascia is thickened without surrounding edema. Moderate nonedematous plantar calcaneal enthesophyte. No abductor digiti quinti muscle atrophy to suggest Rangel neuropathy. IMPRESSION: 1. Postsurgical changes again seen at the lateral ankle with associated scarring. Intermediate signal intensity is seen in the lateral ankle ligaments without significant tearing. The appearance has not significantly changed when compared to the MRI from 06/05/2018. 2. Moderate peroneus brevis and longus tendinosis. 3. Mild midfoot degenerative changes do not appear significantly changed. 4. Moderate chronic proximal plantar fasciitis. Approved by: Jose Martin Patterson M.D. on 04/27/2023 at 15:42
== END ==
PROVIDERS: Referring Provider Orthopaedic Surgery Foot and Ankle Surgery; Visit Provider Orthopaedic Surgery Foot and Ankle Surgery
DX: M67.88 Other specified disorders of synovium and tendon, other site (principal); M72.2 Plantar fascial fibromatosis; Z98.890 Other specified postprocedural states
CPT/HCPCS: 73721

== ENCOUNTER → 2023-05-20 12:49 | Outpatient (CLI) | payer OTHER, SELFPAY ==
--- NOTE | 2023-05-20 | DI.MRI.S_ITS ---
PROCEDURE: MR LOWER LEG LT WO CON COMPARISON: None. INDICATIONS: PAIN IN LEFT CALF Multiplanar and multisequence MR images of left lower leg were obtained without IV contrast. FINDINGS: Bones and joints: There is no marrow edema. No fracture or dislocation. No abnormal cortical thickening or periosteal reaction is seen. No suspicious bony lesions. Soft tissues: The visualized muscles in left lower leg are normal in size and signal. No soft tissue mass or drainable fluid collection is seen. IMPRESSION: 1. No fracture or dislocation is seen in left lower leg. No evidence of tibial stress injury. New 2. No gross left lower leg muscle or tendon signal abnormalities. No soft tissue mass or fluid collection. Dictated by: Tyler Wu M.D. on 05/20/2023 at 15:47 Approved by: Tyler Wu M.D. on 05/20/2023 at 15:49
== END ==
PROVIDERS: Referring Provider Orthopaedic Surgery Foot and Ankle Surgery; Visit Provider Orthopaedic Surgery Foot and Ankle Surgery
DX: M79.662 Pain in left lower leg (principal)
CPT/HCPCS: 73718

== ENCOUNTER 2023-07-22 10:44 | Emergency (ER) | payer OTHER, SELFPAY ==
[2023-07-22 10:58] VITALS: BP 118/56; PULSE 62; RESP 14; TEMP 36.8; O2SAT 100; BMI 27.4
--- NOTE | 2023-07-22 11:01 | DI.RAD.S_ITS ---
PROCEDURE: XR SHOULDER LT MIN 2V INDICATIONS: fall 9 days ago,shoulder pain TECHNIQUE: 3 views of the shoulder were acquired. COMPARISON: None. FINDINGS: Bones: No acute fracture or dislocation. There is mild widening of the acromioclavicular joint. Soft tissues: There is mild calcific tendinitis at the insertion of the rotator cuff. IMPRESSION: 1. No acute fracture. 2. Mild widening of the acromioclavicular joint which may be degenerative in nature, although AC joint strain or separation cannot be excluded. 3. Calcific tendinitis. Dictated by: Manisha Jean M.D. on 07/22/2023 at 11:36 Approved by: Manisha Jean M.D. on 07/22/2023 at 11:37
--- NOTE | 2023-07-22 11:15 | ED.UPPEXIN ---
HPI - Extremity Injury (Upper) <Salvador Andrew PA-C - Last Filed: 07/22/23 13:27> General Chief Complaint: Extremity Injury, Upper Stated Complaint: fell t-7 injured shoulder Time Seen by Provider: 07/22/23 11:12 Source: patient Mode of arrival: Ambulatory History of Present Illness HPI narrative: This is a 49-year-old female presenting to the emergency department complaining of left shoulder pain after having a syncopal episode about a week ago. She states that she had not injure any other part of her body is complaining only of left shoulder pain. She denies any numbness or tingling in her left upper extremity. States that there was some decreased range of motion secondary to pain. No injury to her elbow or hand. She states that the pain is getting worse and not better. Related Data Home Medications Medication Instructions Recorded Confirmed esomeprazole magnesium 20 mg 20 mg PO DAILY 04/13/19 04/13/19 capsule,delayed release (Nexium) trazodone 50 mg tablet 50 mg PO BEDTIME 04/13/19 04/13/19 Previous Rx's Medication Instructions Recorded oxycodone 5 mg tablet 5 mg PO Q4H PRN pain #14 tabs 04/13/19 Allergies Allergy/AdvReac Type Severity Reaction Status Date / Time ondansetron Allergy Intermediate HIVES Verified 07/22/23 10:57 [From ZOFRAN ( HYDROCHLORIDE)] Penicillins [PENICILLINS] Allergy Intermediate HIVES Verified 07/22/23 10:57 sulfamethoxazole Allergy Intermediate Rash Verified 07/22/23 10:57 [From Sulfamethoxazole-Trimethoprim] trimethoprim Allergy Intermediate Rash Verified 07/22/23 10:57 [From Sulfamethoxazole-Trimethoprim] wheat [WHEAT] Allergy Unknown Gastrointestinal Verified 07/22/23 10:57 Upset hydrocodone AdvReac Insomnia Verified 07/22/23 10:57 Review of Systems <Salvador Andrew PA-C - Last Filed: 07/22/23 13:27> Review of Systems Narrative: GENERAL: Denies chills, fatigue, malaise, fever, sweats. HEENT: Denies sinus pain, ear pain, sore throat, difficulty swallowing, dizziness. RESPIRATORY: Denies dyspnea, cough, wheezing, hemoptysis, sputum. CARDIOVASCULAR: Denies chest pain, palpitations, orthopnea, edema, GASTROINTESTINAL: Denies nausea, vomiting, abdominal pain, diarrhea, constipation, melena. : Denies dysuria, frequency, incontinence, hematuria, urinary retention. MUSCULOSKELETAL: Left shoulder pain denies weakness, joint pain, or bony pain SKIN: Denies rash, skin lesions, or other NEUROLOGIC: Denies weakness, headache, numbness, change in speech, confusion, seizures, incoordination. PSYCHIATRIC: No concerning psychosocial issues. 12 point review of systems is negative except for those stated above Patient History <Salvador Andrew PA-C - Last Filed: 07/22/23 13:27> Medical History (Updated 07/22/23 @ 11:47 by Sheryl Lan RN) DDD (degenerative disc disease), lumbar Peroneal tenosynovitis (06/02/16) Peroneus brevis tendinitis GERD (gastroesophageal reflux disease) Arthritis Diabetes Hx of migraine headaches Surgical History History of surgery Hx laparoscopic cholecystectomy History of carpal tunnel release Hx of arthroscopic knee surgery H/O: hysterectomy History of 3 sections Hx of adenoidectomy History of ethmoidectomy (08/15/14) Hx of nasal septoplasty (08/15/14) Social History household members: spouse Smoking Status: Never smoker alcohol intake: current Smoking Status: Never smoker alcohol intake frequency: holidays/special occasions only Substance Use Type: marijuana Exam <Salvador Andrew PA-C - Last Filed: 07/22/23 13:27> Narrative Exam Narrative: GENERAL: Well-developed patient, in mild distress. HEAD: Atraumatic. Normocephalic. EYES: Pupils equal round and reactive. Extraocular motions intact. No scleral icterus. No injection or drainage. ENT: Nose without bleeding, purulent drainage. Throat without erythema, tonsillar hypertrophy or exudate. Airway patent. NECK: Trachea midline. Non tender EXTREMITIES: Tenderness to palpation to the posterior left shoulder. Neurovascularly intact throughout. Range of motion decreased secondary to pain. BACK: Nontender without deformity or crepitance. No flank tenderness. NEURO: AOx3. SKIN: No rash or erythema of visible areas Initial Vital Signs Initial Vital Signs: Vital Signs Temperature 98.2 F 07/22/23 10:58 Pulse Rate 62 07/22/23 10:58 Respiratory Rate 14 07/22/23 10:58 Blood Pressure 118/56 L 07/22/23 10:58 Pulse Oximetry 100 07/22/23 10:58 Oxygen Delivery Method Room Air 07/22/23 10:58 <Cristopher Beltrán DO - Last Filed: 07/22/23 14:28> Initial Vital Signs Initial Vital Signs: Vital Signs Temperature 98.2 F 07/22/23 10:58 Pulse Rate 62 07/22/23 10:58 Respiratory Rate 14 07/22/23 10:58 Blood Pressure 118/56 L 07/22/23 10:58 Pulse Oximetry 100 07/22/23 10:58 Oxygen Delivery Method Room Air 07/22/23 10:58 Course <Salvador Andrew PA-C - Last Filed: 07/22/23 13:27> Orders Ordered: ED Orders 07/22/23 11:01 XR shoulder LT min 2V Stat Discontinued Medications Ketorolac Tromethamine (Ketorolac 30 Mg/Ml Vial) 15 mg IM NOW ONE Stop: 07/22/23 11:48 Last Admin: 07/22/23 11:52 Dose: 15 mg Documented By: AGUSTIN Vital Signs Vital signs: Vital Signs - 8 hr 07/22/23 10:58 Temperature 98.2 F Pulse Rate 62 Respiratory Rate 14 Blood Pressure 118/56 L Pulse Oximetry 100 Oxygen Delivery Method Room Air <Cristopher Beltrán DO - Last Filed: 07/22/23 14:28> Orders Ordered: ED Orders 07/22/23 11:01 XR shoulder LT min 2V Stat Discontinued Medications Ketorolac Tromethamine (Ketorolac 30 Mg/Ml Vial) 15 mg IM NOW ONE Stop: 07/22/23 11:48 Last Admin: 07/22/23 11:52 Dose: 15 mg Documented By: AGUSTIN Vital Signs Vital signs: Vital Signs - 8 hr 07/22/23 10:58 Temperature 98.2 F Pulse Rate 62 Respiratory Rate 14 Blood Pressure 118/56 L Pulse Oximetry 100 Oxygen Delivery Method Room Air MDM - Extremity Injury (Upper) <ARIANNA Patel Last Filed: 07/22/23 13:27> Imaging Data Extremity x-ray #1: Radiologist's Impression: [address] [place] [address] XRay Report Signed Patient: Monica Hawkins MR#: [id number] : 1970 Acct:[id number] Age/Sex: 53 / F Date of Service: 07/22/23 Loc: ED Accession Number: [id number] Procedure: XR shoulder LT min 2V Ordering Provider: Cristopher Beltrán D.O. PROCEDURE: XR SHOULDER LT MIN 2V INDICATIONS: fall 9 days ago,shoulder pain TECHNIQUE: 3 views of the shoulder were acquired. COMPARISON: None. FINDINGS: Bones: No acute fracture or dislocation. There is mild widening of the acromioclavicular joint. Soft tissues: There is mild calcific tendinitis at the insertion of the rotator cuff. IMPRESSION: 1. No acute fracture. 2. Mild widening of the acromioclavicular joint which may be degenerative in nature, although AC joint strain or separation cannot be excluded. 3. Calcific tendinitis. Dictated by: Manisha Jean M.D. on 07/22/2023 at 11:36 Approved by: Manisha Jean M.D. on 07/22/2023 at 11:37 ECG Data Interpretation: EKG is normal sinus rhythm rate [ ] and free of any signs of ischemia or ectopy. No ST segmental elevation or depression. No T wave inversions MDM Narrative Medical decision making narrative: This is a 49-year-old female presents to the emergency department complaining of left shoulder pain after a syncopal episode about a week ago. She was seen by your primary care doctor who has done a full workup regarding the syncopal episode. She was not reporting any concerning neuro symptoms today. She was complaining solely of the left shoulder pain. X-ray was negative for any acute findings but did show findings suggestive of chronic degenerative changes. We will treat conservatively. Toradol given IM as well as a sling needed for comfort. Recommended she follow up with her primary care provider in physical therapy for further evaluation and management of the pain continues. CC: Left shoulder pain Complicating co-morbidities: Diabetes Data collected from: Prior notes Medical records reviewed: Patient was seen here for abdominal pain a year and a half ago. Workup unremarkable and patient was discharged. Differential considered, but not limited to: Your left humerus fracture, scapular fracture, clavicle fracture, shoulder sprain Exam documented above, pertinent findings include: Tenderness to palpation to the posterior left shoulder. Neurovascularly intact throughout. Lab Test results independently reviewed as above. Pertinent findings: None obtained Imaging studies independently reviewed: Left shoulder x-ray negative for any acute findings. Scores Used: None MIPS Elements: None Consultations: None Treatments: 15 mg Toradol IM as well as sling for comfort Re-evaluations: None Discussion: Discussed plan with the patient was comfortable with the plan Diagnosis: Left shoulder sprain Disposition: see below, along with detailed discharge instructions that have been reviewed with patient as well as indications for ED re-evaluation and additional outpatient follow up Discharge Plan Departure Patient Disposition: Home Clinical Impression: Left shoulder strain Activity Restrictions/Additional Instructions: Thank you for coming to the [facility] Emergency Department today. As we discussed your left shoulder x-ray was negative for any acute fractures. Please treat this as a mild sprain. The Toradol given to you today should help with the pain. Please follow up with the primary care provider and physical therapist for further pain management if the pain continues. I hope you feel better soon. Please follow up with your primary care provider within a week if your symptoms continue. If you do not have a primary care provider please contact the [facility] Resource line at [phone]. They will ask some questions about your medical history and help you get set up with a provider in the community. Prescriptions: No Action trazodone 50 mg Tablet 50 mg PO BEDTIME esomeprazole magnesium [Nexium] 20 mg Capsule,Delayed Release(Dr/Ec) 20 mg PO DAILY oxycodone 5 mg tablet 5 mg PO Q4H PRN (Reason: pain) Qty: 14 0RF Referrals: ProviderJamari [Primary Care Provider] - Stand Alone Forms: Patient Portal/API ED Sign-out <Cristopher Beltrán DO - Last Filed: 07/22/23 14:28> Cosign ED Attending Cosignature Attestation: Dr Beltrán Co-Sign Statement: I was available for consultation during this patient's emergency department visit. This chart is signed by myself for administrative purposes only. I did not have direct contact with this patient during this visit. They were seen independently by the APC.
[2023-07-22] MEDS: KETOROLAC 30 MG/ML VIAL 15 MG IM (11:52)
== END 2023-07-22 11:58 | disposition home or self-care (01) ==
PROVIDERS: Emergency Provider Physician Assistant Medical
DX: S46.912A Strain of unspecified muscle, fascia and tendon at shoulder and upper arm level, left arm, initial encounter (principal); W19.XXXA Unspecified fall, initial encounter
CPT/HCPCS: 73030; 96372; 99283; 99284; J1885

== ENCOUNTER 2025-01-08 10:55 | Emergency (ER) | payer OTHER, SELFPAY ==
[2025-01-08 10:59] VITALS: BP 135/63; PULSE 65; RESP 14; TEMP 36.4; O2SAT 99; BMI 26.5
--- NOTE | 2025-01-08 12:02 | ED.EXTPRO ---
HPI - Extremity Problem General Chief complaint: Extremity Problem,Nontraumatic Stated complaint: Left knee pain , Time Seen by Provider: 01/08/25 11:00 Source: patient Mode of arrival: Ambulatory History of Present Illness HPI Narrative: 54-year-old woman with left knee pain for the last 4 days. No obvious trauma, she has had 3 prior surgeries involving this need all due to meniscal injury. She has been using Tylenol and ice. She saw her primary care physician yesterday who did give her some Percocet. She has had previous bariatric surgery and can not take nonsteroidals. Dr. Cohen had mentioned initiating a referral for an MRI which I do believes that extent. She comes in because she is having increasing pain, feeling instability in the knee such that she has started using a cane and she is concerned symptoms are worsening Related Data Home Medications ?Medication ?Instructions ?Recorded ?Confirmed esomeprazole magnesium 20 mg 20 mg PO DAILY 04/13/19 04/13/19 capsule,delayed release (Nexium) trazodone 50 mg tablet 50 mg PO BEDTIME 04/13/19 04/13/19 Previous Rx's ?Medication ?Instructions ?Recorded oxycodone 5 mg tablet 5 mg PO Q4H PRN pain #14 tabs 04/13/19 methylprednisolone 4 mg tablets in See Rx Instructions PO .COMPLEX 01/08/25 a dose pack (Medrol (Jaison)) #21 ea Allergies Allergy/AdvReac Type Severity Reaction Status Date / Time ondansetron (From ZOFRAN ( Allergy Intermediate HIVES Verified 01/08/25 10:59 HYDROCHLORIDE)) Penicillins (PENICILLINS) Allergy Intermediate HIVES Verified 01/08/25 10:59 sulfamethoxazole (From Allergy Intermediate Rash Verified 01/08/25 10:59 Sulfamethoxazole-Trimethoprim) trimethoprim (From Allergy Intermediate Rash Verified 01/08/25 10:59 Sulfamethoxazole-Trimethoprim) wheat (WHEAT) Allergy Unknown Gastrointestinal Verified 01/08/25 10:59 Upset hydrocodone AdvReac Insomnia Verified 01/08/25 10:59 Review of Systems Constitutional Comments: Pertinent positive and negative findings as per HPI Patient History Medical History (Updated 01/08/25 @ 12:09 by Tory Steen MD) DDD (degenerative disc disease), lumbar Peroneal tenosynovitis (06/02/16) Peroneus brevis tendinitis GERD (gastroesophageal reflux disease) Arthritis Diabetes Hx of migraine headaches Surgical History History of surgery Hx laparoscopic cholecystectomy History of carpal tunnel release Hx of arthroscopic knee surgery H/O: hysterectomy History of 3 sections Hx of adenoidectomy History of ethmoidectomy (08/15/14) Hx of nasal septoplasty (08/15/14) Social History household members: spouse alcohol intake: current Smoking Status: Unknown if ever smoked alcohol intake frequency: holidays/special occasions only Exam Initial Vital Signs Initial Vital Signs: Vital Signs Temperature 97.5 F L 01/08/25 10:59 Pulse Rate 65 01/08/25 10:59 Respiratory Rate 14 01/08/25 10:59 Blood Pressure 135/63 01/08/25 10:59 Pulse Oximetry 99 01/08/25 10:59 Oxygen Delivery Method Room Air 01/08/25 10:59 General: Alert appropriate in no acute distress Respiratory: Able to speak in full sentences, no obvious respiratory distress Skin: No obvious rashes, warm and dry Neurologic: Grossly intact no obvious asymmetries or abnormalities Psych: appropriate insight and affect, cooperative Extremity: Left knee does have a moderate effusion, laxity to the anterior cruciate as well as lateral collateral ligaments. No evidence of warmth or dramatic pain with movement to suggest a septic joint Course Vital Signs Vital signs: Vital Signs - 8 hr 01/08/25 10:59 Temperature 97.5 F L Pulse Rate 65 Respiratory Rate 14 Blood Pressure 135/63 Pulse Oximetry 99 Oxygen Delivery Method Room Air MDM - Extremity (Nontraumatic) MDM Narrative Medical decision making narrative: 54-year-old woman with increasing left knee pain. Has been seen by her primary care physician currently does have medications available, MRI referral has been initiated. There was no indication for emergent MRI in the emergency department. No indication for additional imaging or any type of aspiration, I do not suspect gout or septic joint. She is given a knee immobilizer given the instability that she is experiencing. She is also given a Medrol Dosepak as she can not use nonsteroidals to help with the inflammation. I encouraged her to follow up with Dr. Cohen's office to make sure that referral has been initiated, I do believe that is the next step in the workup. She does not need any other emergent imaging and is safe for discharge home Long-leg knee immobilizers placed by nursing staff. She is neurovascularly intact pre and post placement. The extra stability is helpful with pain control Discharge Plan Departure Patient Disposition: Home Clinical Impression: Effusion of knee joint, left Knee instability Qualifiers: Laterality: left Qualified Code(s): M25.362 - Other instability, left knee Instructions: DI for Knee Pain Activity Restrictions/Additional Instructions: Thank you for coming in today I suspect that you do have some ligamentous injury in the knee and I do believe the next step in definitive diagnosis is going to be the MRI that Dr. Cohen has initiated as an outpatient In the meantime, using the knee immobilizer is going to help with the overall stability so that you do not fall I have given you a steroid dose pack that tapers down. This helps with inflammation because you can not use medications such as ibuprofen You said that Dr. Cohen gave you Percocet yesterday it is okay to use this at night. Please do make sure you continuing to use your cane for stability. If you find that you are getting worse developing fevers or something changes please return to the ER Prescriptions: New methylprednisolone [Medrol (Jaison)] 4 mg tablets,dose pack See Rx Instructions .ROUTE .COMPLEX Qty: 21 0RF Rx Instructions: orally per package directions No Action trazodone 50 mg Tablet 50 mg PO BEDTIME esomeprazole magnesium [Nexium] 20 mg Capsule,Delayed Release(Dr/Ec) 20 mg PO DAILY oxycodone 5 mg tablet 5 mg PO Q4H PRN (Reason: pain) Qty: 14 0RF Referrals: ProviderJamari [Primary Care Provider, Family Practice] Stand Alone Forms: Patient Portal/API
== END 2025-01-08 12:17 | disposition home or self-care (01) ==
PROVIDERS: Emergency Provider Emergency Medicine
DX: M25.362 Other instability, left knee (principal); Z98.890 Other specified postprocedural states
CPT/HCPCS: 99282

== ENCOUNTER → 2025-01-15 13:43 | Outpatient (CLI) | payer OTHER, SELFPAY ==
--- NOTE | 2025-01-15 13:44 | DI.MRI.S_ITS ---
PROCEDURE: MR KNEE LT WO CON INDICATIONS: LT KNEE PAIN TECHNIQUE: Noncontrast sagittal PD fast spin echo and T2 fast spin echo with fat saturation, sagittal 3-D FLASH with fat saturation; coronal T1 spin echo and PD fast spin echo with fat saturation, and axial PD fast spin echo with fat saturation through the knee. COMPARISON: [facility], MR, KNEE WITHOUT CONTRAST, 07/23/2015, 17:52. FINDINGS: Image quality: Excellent. Menisci: Peripheral displacement of medial meniscus bowing medial collateral ligament is seen. There is suggestion of subtle oblique tear involving posterior horn of medial meniscus extending to inferior articulating surface. No evidence of lateral meniscal tear. Cruciate ligaments: Attenuated appearance of the anterior cruciate ligament is seen concerning for low to moderate grade partial-thickness tear. No definite full- thickness ACL rupture. The PCL is intact. Medial structures: The medial collateral ligament appears thickened with surrounding soft tissue edema. Visualized portions of the pes anserinus tendons appear normal. No abnormal bursal fluid. Lateral structures: The lateral collateral ligament, long and short heads of the biceps femoris tendon appear intact. The popliteus tendon appears intact. Iliotibial band appears normal. Anterior structures: Distal quadriceps tendinosis and proximal patellar tendinosis is seen. Patella alignment is anatomic. Bones and cartilage: No fracture or dislocation. 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 Joint space: There is small to moderate knee joint fluid. No Rojas's cyst. Normal appearing synovial plicae are incidentally noted. IMPRESSION: 1. Oblique tear involving posterior horn of medial meniscus extending to inferior articulating surface. The lateral meniscus is intact. 2. Low to moderate grade intrasubstance partial-thickness tear involving ACL. No ACL rupture. The PCL is intact. 3. Low-grade MCL sprain/partial-thickness tear. 4. Distal quadriceps tendinosis and proximal patellar tendinosis. 5. [id number] tricompartmental osteoarthritis and [id number] chondromalacia more notably in medial femoral tibial compartment and lateral portion of patellofemoral compartment. No fracture or dislocation. Small to moderate joint effusion, no loose bodies. Dictated by: Tyler Wu M.D. on 01/15/2025 at 19:52 Approved by: Tyler Wu M.D. on 01/15/2025 at 19:55
== END ==
PROVIDERS: Referring Provider Family Medicine; Visit Provider Family Medicine
DX: S83.242A Other tear of medial meniscus, current injury, left knee, initial encounter (principal); S83.512A Sprain of anterior cruciate ligament of left knee, initial encounter; S83.412A Sprain of medial collateral ligament of left knee, initial encounter; M17.12 Unilateral primary osteoarthritis, left knee; M22.42 Chondromalacia patellae, left knee; M25.462 Effusion, left knee; M25.562 Pain in left knee
CPT/HCPCS: 73721